=== PATIENT | male | born 1965 | race Caucasian/White ===

== ENCOUNTER 2024-10-20 03:29 | Emergency (ER) | payer MEDICARE, OTHER, SELFPAY ==
[~2024-10-20] VITALS: Ht 177.8 cm; Wt 83.6 kg
[2024-10-20 04:26] VITALS: TEMP 98.2
[2024-10-20 05:56] VITALS: BP 141/92; PULSE 58; RESP 16; O2SAT 98
== END 2024-10-20 06:00 ==
LOC: EMS 03:29
DX: R09.89 Other specified symptoms and signs involving the circulatory and respiratory systems (principal); T17.928A Food in respiratory tract, part unspecified causing other injury, initial encounter; F15.90 Other stimulant use, unspecified, uncomplicated; Z88.0 Allergy status to penicillin; W44.F3XA Food entering into or through a natural orifice, initial encounter
CPT/HCPCS: 71046; 99283

== ENCOUNTER 2024-10-25 13:54 | Inpatient (IN) | payer OTHER ==
[~2024-10-25] VITALS: Ht 177.8 cm; Wt 89.1 kg
[2024-10-25 15:16] LABS: PLATELET COUNT (AUTO) 152 K/uL (150-450); RED BLOOD CELL COUNT(AUTO) 5.14 MIL/uL (4.50-5.90); RED CELL DISTRIBUTION WIDTH 13.9 % (11.5-14.5); WHITE BLOOD COUNT (AUTO) 7.4 K/uL (4.5-11.0)
[2024-10-25 15:24] LABS: CALCIUM, TOTAL 8.6 mg/dL (8.8-10.5); CREATININE 0.79 mg/dL (0.60-1.30); GLOMERULAR FILTR. RATE CALC > 60 mL/min (>60); GLUCOSE,RANDOM 110 mg/dL (70-110); SODIUM SERUM 139 mmol/L (136-145); UREA NITROGEN, BLOOD 12 mg/dL (7-18)
[2024-10-25] MEDS ORDERED: BISACODYL 10 MG RECTAL RECTAL SUPPOSITORY PR PRN (16:00)
[2024-10-25] MEDS ORDERED: ONDANSETRON HCL 4 MG/2 ML VIAL IVP PRN (16:00)
[2024-10-25] MEDS ORDERED: IPRATROPIUM BROMIDE 0.5 MG/2.5 ML NEB SOLUTION NEB PRN (16:00)
[2024-10-25] MEDS ORDERED: ALBUTEROL SULFATE 2.5 MG/0.5 ML NEB SOLUTION NEB PRN (16:00)
[2024-10-25] MEDS ORDERED: HYDROCODONE/ACETAMINOPHEN 5-325 MG TABLET PO PRN (16:00)
[2024-10-25] MEDS ORDERED: ZOLPIDEM TARTRATE 5 MG TABLET PO PRN (16:00)
[2024-10-25] MEDS ORDERED: MAGNESIUM HYDROXIDE SUSPENSION 30 ML UDCUP PO PRN (16:00)
[2024-10-25] MEDS ORDERED: ACETAMINOPHEN 325 MG TABLET PO PRN (16:00)
[2024-10-25] MEDS: *CLINICAL-LEVOFLOXACIN IVPB DOSING CLINICAL ONE (16:09)
[2024-10-25] MEDS: BENZONATATE 100 MG CAPSULE PO SCH (16:23)
[2024-10-25] MEDS: HEPARIN SODIUM,PORCINE 5,000 UNITS/ML VIAL SQ SCH (16:23)
[2024-10-25 16:34] LABS: COVID AG,FIA SOURCE NASAL SWAB
[2024-10-25 17:01] LABS: INFLUENZA TYPE A NEGATIVE FOR TYPE A (NEGATIVE); INFLUENZA TYPE B NEGATIVE FOR TYPE B (NEGATIVE)
[2024-10-25 17:02] LABS: SARS-COV2 (COVID) ANTIGEN,FIA Negative (Negative)
[2024-10-25] MEDS: LEVOFLOXACIN 750 MG/D5% WATER 150 ML IV SCH (17:34)
[2024-10-25 19:04] VITALS: BP 155/99; PULSE 72; RESP 18; TEMP 98.1; O2SAT 96
[2024-10-25 19:58] VITALS: BP 152/105; PULSE 72; RESP 20; TEMP 98.2; O2SAT 95
[2024-10-25 20:00] VITALS: BP 163/104; PULSE 76; RESP 20; O2SAT 94
[2024-10-25] MEDS: IPRATROPIUM BROMIDE 0.5 MG/2.5 ML NEB SOLUTION NEB SCH (20:00)
[2024-10-25] MEDS: ALBUTEROL SULFATE 2.5 MG/0.5 ML NEB SOLUTION NEB SCH (20:00)
[2024-10-25] MEDS: GuaiFENesin SR 600 MG ER TABLET PO SCH (20:36)
[2024-10-25] MEDS: DOCUSATE SODIUM 100 MG CAPSULE PO SCH (20:36)
[2024-10-25] MEDS ORDERED: DOCU-385 PO (23:25)
[2024-10-25] MEDS ORDERED: LISI-893 PO (23:25)
[2024-10-25] MEDS ORDERED: RISP1TAB48 PO (23:25)
[2024-10-25] MEDS ORDERED: ATOR10TA PO (23:25)
[2024-10-25] MEDS ORDERED: SENN-376 PO (23:25)
[2024-10-25] MEDS ORDERED: FLUO-418 PO (23:25)
[2024-10-25] MEDS ORDERED: IBUP-45 PO (23:25)
[2024-10-25] MEDS ORDERED: TAMS0.4C94 PO (23:25)
[2024-10-25] MEDS: TAMSULOSIN HCL 0.4 MG CAPSULE PO SCH (23:41)
[2024-10-26] VITALS (10 sets, daily range): BP systolic 134–147; BP diastolic 89–96; PULSE 86–110; RESP 18–20; TEMP 98.2; O2SAT 91–99
[2024-10-26] MEDS: PANTOPRAZOLE SODIUM 40 MG DR TABLET PO SCH (08:06)
[2024-10-26] MEDS: MORPHINE SULFATE 4 MG/ML VIAL IVP PRN (14:30)
[2024-10-26] MEDS ORDERED: SODIUM CHLORIDE 0.9% 250 ML IV ONE (17:59)
[2024-10-27 05:20] VITALS: BP 100/65; PULSE 87; RESP 18; TEMP 98.1; O2SAT 93
[2024-10-27 08:00] VITALS: BP 127/88; PULSE 101; PULSE 76; RESP 16; RESP 20; TEMP 98.1; O2SAT 95; O2SAT 97
[2024-10-27 08:15] VITALS: PULSE 91; RESP 16; O2SAT 99
[2024-10-27 16:00] VITALS: BP 142/86; PULSE 87; RESP 20; TEMP 98.2; O2SAT 95
[2024-10-27] MEDS ORDERED: METR500 PO (16:12)
[2024-10-27] MEDS ORDERED: LEVO750T68 PO (16:14)
[2024-10-27] MEDS ORDERED: PRED-554 PO (16:17)
[2024-10-27 20:13] VITALS: BP 147/98; PULSE 81; RESP 20; TEMP 97.9; O2SAT 94
[2024-10-28 05:06] VITALS: BP 138/91; PULSE 66; RESP 18; TEMP 97.7; O2SAT 94
[2024-10-28 08:00] VITALS: BP 119/81; PULSE 70; RESP 20; TEMP 98.1; O2SAT 96
== END 2024-10-28 14:39 | DRG 177 ==
LOC: EMS 13:54 → EDH 15:59 → 4E 18:45 → 4S 10-26 14:50
PROVIDERS: ADMIT Internal Medicine; ATTEND Internal Medicine
DX: J69.0 Pneumonitis due to inhalation of food and vomit (principal); J96.01 Acute respiratory failure with hypoxia; J45.901 Unspecified asthma with (acute) exacerbation; F19.10 Other psychoactive substance abuse, uncomplicated; N40.0 Benign prostatic hyperplasia without lower urinary tract symptoms; I10 Essential (primary) hypertension; Z20.822 Contact with and (suspected) exposure to COVID-19; E78.5 Hyperlipidemia, unspecified; Z88.0 Allergy status to penicillin; Z79.899 Other long term (current) drug therapy
CPT/HCPCS: 71045; 80048; 85025; 85610; 87040; 87804; 92610; 93005; 94640; 99285; G0378; J1644; J1956; J2270; J2919; J7050; 36415-L1; 36415-TC; J7613

== ENCOUNTER 2024-12-15 20:47 | Emergency (ER) | payer OTHER ==
[~2024-12-15] VITALS: Ht 177.8 cm; Wt 84.1 kg
[~2024-12-15 20:47] MED LIST: ATOR10TA PO; DOCU-385 PO; FLUO-418 PO; LEVO750T68 PO; LISI-893 PO; METR500 PO; PRED-554 PO; SENN-376 PO; TAMS0.4C94 PO
[2024-12-15 20:57] VITALS: BP 144/93; PULSE 72; RESP 16; TEMP 98; O2SAT 98
[2024-12-15] MEDS: LIDOCAINE 1%/EPI 1:200,000/PF 10 ML VIAL SQ ONE (23:38)
[2024-12-16] MEDS: PERTUSS(ACELL),DIPH,TET/PF 0.5 ML SYRINGE [ADULT] IM. ONE (00:36)
[2024-12-16] MEDS: BACITRACIN 0.9 GM PACKET OINTMENT TP ONE (00:38)
== END 2024-12-16 01:00 ==
LOC: EMS 20:49
DX: S01.81XA Laceration without foreign body of other part of head, initial encounter (principal); R47.81 Slurred speech; F15.90 Other stimulant use, unspecified, uncomplicated; Z87.820 Personal history of traumatic brain injury; Z87.828 Personal history of other (healed) physical injury and trauma; Z88.0 Allergy status to penicillin; Z79.52 Long term (current) use of systemic steroids; Z79.899 Other long term (current) drug therapy; W19.XXXA Unspecified fall, initial encounter; Y93.89 Activity, other specified; Y92.89 Other specified places as the place of occurrence of the external cause; Y99.8 Other external cause status
CPT/HCPCS: 99285; 70450; 72125; 96372; 90715; 90471; J3490